=== PATIENT | female | born 1935 | race Caucasian/White ===

== ENCOUNTER 2022-05-04 12:55 | Emergency (ER) | payer MEDICARE, OTHER, MEDICAID ==
[2022-05-04] MEDS ORDERED: fentaNYL 100 MCG/2 ML SDV IVPUSH ONE ×2 (13:22)
[2022-05-04] MEDS ORDERED: fentaNYL 12 MCG/HR Transdermal Patch TRDERM SCH (17:00)
[2022-05-04] MEDS ORDERED: traMADol 50 MG Tab PO ONE (17:58)
[2022-05-04] MEDS ORDERED: Cefdinir 300 MG Cap PO ONE (18:00)
[2022-05-04] MEDS ORDERED: Doxycycline Susp 25 MG/5 ML 60 ML Bottle PO ONE (18:49)
== END 2022-05-04 20:15 ==
LOC: JD.ED 12:55
DX: S72.141A Displaced intertrochanteric fracture of right femur, initial encounter for closed fracture (principal); F03.90 Unspecified dementia, unspecified severity, without behavioral disturbance, psychotic disturbance, mood disturbance, and anxiety; Z88.8 Allergy status to other drugs, medicaments and biological substances; Z88.1 Allergy status to other antibiotic agents; Z88.5 Allergy status to narcotic agent; Z88.4 Allergy status to anesthetic agent; Z88.2 Allergy status to sulfonamides; Z79.899 Other long term (current) drug therapy; W18.30XA Fall on same level, unspecified, initial encounter; Y92.129 Unspecified place in nursing home as the place of occurrence of the external cause
CPT/HCPCS: 36415; 71045; 73502; 80053; 81001; 85025; 85610; 85730; 87086; 87088; 87186; 96374; 99285; A9270; J3010